=== PATIENT | female | born 1995 | race Caucasian/White ===

== ENCOUNTER 2019-01-16 23:29 | Emergency (ER) | payer OTHER ==
[2019-01-17] MEDS: HYDROCODONE/APAP (10/325) TAB PO (02:17)
[2019-01-17] MEDS: DIPHTH/TET/ACEL PERTUSS (ADULT) 0.5 ML VIAL IM* (02:18)
[2019-01-17] MEDS: LIDOCAINE 1% (MDV) 20 ML INJ SC (02:18)
[2019-01-17] MEDS ORDERED: BACITRACIN 0.9 GM OINT TOP (04:00)
[2019-01-17] MEDS ORDERED: BACITRACIN 0.5%/ZINC 28.35 GM OINT TOP (04:30)
== END 2019-01-17 05:11 | disposition left against medical advice (07) ==
LOC: FTE 23:29
DX: L60.0 Ingrowing nail (principal); Z23 Encounter for immunization
CPT/HCPCS: 11765; 90471; 90715; 99283-25